=== PATIENT | female | born 1985 | race African-American/Black ===

== ENCOUNTER 2021-08-26 15:40 | Observation (INO) ==
[2021-08-26] MEDS ORDERED: ONDANSETRON 4 MG/2 ML VIAL IV PRN (17:21)
[2021-08-26] MEDS ORDERED: ACETAMINOPHEN 325 MG TABLET PO PRN (17:21)
[2021-08-26 17:38] LABS: Basophils % 0.2 % (0.0-0.8); Eosinophils # 0.3 10*3/uL (0.0-0.87); Eosinophils % 3.6 % (0.00-10.9); Hematocrit 39.1 VOL% (35.7-47.0); Hemoglobin 12.7 GM/DL (12.0-16.0); Immature Granulocytes % 0.2 %; Immature Granulocytes Absolute 0.02 #; Lymphocytes # 2.8 10*3/uL (1.4-4.0); Lymphocytes % 34.5 % (21.3-54.2); Mean Corpuscular HGB Conc 32.5 GM/DL (32-36); Mean Corpuscular Volume 96.1 FL (87-102); Mean Platelet Volume 10.9 FL (9.6-12.0); Monocytes % 8.5 % (1.7-12.7); Platelet Count 185 T/CUMM (130-400); Red Blood Count 4.07 MC/CUMM (3.8-5.5); Red Cell Distribution Width 12.6 % (9.3-17.3); White Blood Count 8.1 T/CUMM (4-12)
[2021-08-26 18:01] LABS: Alanine Aminotransferase 10 U/L (13-56); Albumin 3.7 G/DL (3.4-5.0); Alkaline Phosphatase 90 U/L (45-117); Aspartate Amino Transferase 13 U/L (0-37); Bilirubin,Total < 0.39 MG/DL (0.20-1.00); Blood Urea Nitrogen 5 MG/DL (7-18); Calcium 8.7 MG/DL (8.5-10.1); Carbon Dioxide 28 MMOL/L (21-32); Estimated Glom Filtration Rate 109 ML/MIN; Glucose 93 MG/DL (74-106); Osmolality,Calculated 273.5 MOS/KG (273-304); Potassium 4.1 MMOL/L (3.5-5.1); Sodium 139 MMOL/L (136-145); Total Protein 7.6 G/DL (6.4-8.2)
[2021-08-26] MEDS ORDERED: ZALEPLON 5 MG CAPSULE PO PRN (20:51)
[2021-08-26] MEDS: PANTOPRAZOLE 40 MG TABLET PO SCH (21:18)
[2021-08-26] MEDS: PIPERACILLIN/TAZOBACTAM 3,375 MG in SODIUM CHLORIDE 0.9% 100 ML IV SCH (21:20)
[2021-08-27] MEDS: PIPERACILLIN/TAZOBACTAM 3,375 MG in SODIUM CHLORIDE 0.9% 100 ML IV SCH (06:16)
[2021-08-27] MEDS ORDERED: BUPIVACAINE MPF 0.25% 30 ML VIAL ONE (08:07)
[2021-08-27] MEDS ORDERED: LIDOCAINE 1%/EPI INJ 20 ML VIAL ONE (08:07)
[2021-08-27] MEDS ORDERED: LIDOCAINE 2% TOP JELLY 5 ML TUBE TOP ONE (08:07)
[2021-08-27] MEDS ORDERED: FAMOTIDINE 20 MG/2 ML VIAL IV ONE (08:15)
[2021-08-27] MEDS ORDERED: LIDOCAINE 2% 5 ML VIAL ONE (08:16)
[2021-08-27] MEDS ORDERED: propofoL 200 MG/20 ML VIAL IV ONE (08:16)
[2021-08-27] MEDS ORDERED: fentaNYL 100 MCG/2 ML VIAL ONE (08:16)
[2021-08-27] MEDS ORDERED: MIDAZOLAM 2 MG/2 ML VIAL ONE (08:16)
[2021-08-27] MEDS ORDERED: ONDANSETRON 4 MG/2 ML VIAL ONE (08:16)
[2021-08-27] MEDS ORDERED: LACTATED RINGERS 1,000 ML IV SCH (08:30)
[2021-08-27] MEDS: PANTOPRAZOLE 40 MG TABLET PO SCH (08:31)
[2021-08-27] MEDS ORDERED: SEVOFLURANE 1 UNIT/15 MINUTE INH ONE (09:08)
[2021-08-27] MEDS ORDERED: KETOROLAC 30 MG/1 ML VIAL ONE (09:08)
[2021-08-27] MEDS ORDERED: MEPERIDINE 25 MG/1 ML VIAL ONE (09:22)
[2021-08-27] MEDS ORDERED: MEPERIDINE 25 MG/1 ML VIAL IV PRN (09:29)
[2021-08-27] MEDS ORDERED: HYDROmorphone 2 MG/1 ML VIAL IV PRN (09:29)
[2021-08-27] MEDS ORDERED: ONDANSETRON 4 MG/2 ML VIAL IV PRN (09:29)
[2021-08-27] MEDS ORDERED: CEFUROXIME 500 MG TABLET PO SCH (10:30)
[2021-08-27] MEDS ORDERED: ONDANSETRON ODT 4 MG TABLET PO ONE (13:15)
[2021-08-27 13:55] VITALS: BP 90/62
== END 2021-08-27 17:01 | disposition home or self-care (01) ==
LOC: N.EDINP 15:40 → N.ED 15:40 → N.EDINP 20:37 → N.3E 20:44
PROVIDERS: ADMIT Surgery; ATTEND Surgery